=== PATIENT | male | born 1985 | race Caucasian/White ===

== ENCOUNTER 2019-07-14 11:38 | Emergency (ER) | payer OTHER, SELFPAY ==
[2019-07-14] MEDS ORDERED: Morphine 2 MG/ML SYRINGE ONE (13:11)
[2019-07-14] MEDS ORDERED: Morphine 4 MG/ML VIAL ONE (13:11)
[2019-07-14] MEDS ORDERED: Lidocaine 1% PF 5 ML VIAL ONE (13:11)
[2019-07-14] MEDS ORDERED: Lidocaine 1% w/Epinephrine 1:100K 30 ML VIAL ONE (13:12)
== END 2019-07-14 14:39 | disposition home or self-care (01) ==
LOC: BURERS 11:38
DX: K64.5 Perianal venous thrombosis (principal); F31.9 Bipolar disorder, unspecified; F17.210 Nicotine dependence, cigarettes, uncomplicated; Z87.442 Personal history of urinary calculi
CPT/HCPCS: 46083; J2001; J2270

== ENCOUNTER 2020-07-29 18:03 | Emergency (ER) | payer SELFPAY ==
[2020-07-29] MEDS ORDERED: predniSONE 20 MG TAB ONE (19:07)
== END 2020-07-29 19:10 | disposition home or self-care (01) ==
LOC: BURERS 18:03
DX: H60.92 Unspecified otitis externa, left ear (principal); H66.41 Suppurative otitis media, unspecified, right ear; H72.91 Unspecified perforation of tympanic membrane, right ear; K58.9 Irritable bowel syndrome, unspecified; F17.210 Nicotine dependence, cigarettes, uncomplicated; Z87.442 Personal history of urinary calculi
CPT/HCPCS: 99282; J7512

== ENCOUNTER 2020-10-02 07:38 | Emergency (ER) | payer SELFPAY ==
[2020-10-02 13:34] LABS: SARS-CoV-2 PCR by NAA Not Detected (NotDetected)
== END 2020-10-02 08:10 | disposition home or self-care (01) ==
LOC: BURERS 07:38
DX: R06.02 Shortness of breath (principal); R50.9 Fever, unspecified; R51.9 Headache, unspecified; R05 Cough; Z20.822 Contact with and (suspected) exposure to COVID-19; F17.210 Nicotine dependence, cigarettes, uncomplicated
CPT/HCPCS: 87635; 99406; U0003; U0005

== ENCOUNTER 2021-01-21 21:53 | Emergency (ER) | payer SELFPAY ==
[2021-01-21] MEDS ORDERED: Ketorolac Tromethamine 30 MG/ML VIAL ONE (23:26)
[2021-01-22 00:06] LABS: #Basophils 0.1 thou/uL (0.0-0.2); #Eosinphils 0.2 thou/uL (0.0-0.7); #Lymphocytes 2.5 thou/uL (1.20-3.40); #Monocytes 0.9 thou/uL (0.11-0.59); #Neutrophils 7.9 thou/uL (1.40-6.50); %Basophils 0.7 % (0.0-1.0); %Eosinophils 1.8 % (0.0-10.0); %Lymphocytes 21.7 % (21.0-51.0); %Monocytes 7.6 % (0.0-10.0); %Neutrophils 68.3 % (42.0-75.0); Hemoglobin 16.4 g/dL (14.0-18.0); Mean Corpuscular HGB CONC 33.2 g/dL (32.0-36.0); Mean Corpuscular Hemoglobin 30.7 pg (27.0-31.0); Mean Corpuscular Volume 92.3 fL (78.0-98.0); Mean Platelet Volume 9.6 fL (7.4-10.4); Platelet Count 189 thou/uL (130-400); RBC Distribution Width 12.8 % (11.5-14.5); Red Blood Cell (RBC) Count 5.33 mill/uL (4.70-6.10); White Blood Cell (WBC) Count 11.5 thou/uL (4.8-10.8)
[2021-01-22 00:20] LABS: Anion Gap 14 mmol/L (10-20); BUN (Urea Nitrogen) 11 mg/dL (8.9-20.6); Calc. Creatinine Clearance 0 mL/min (70-130); Carbon Dioxide 24 mmol/L (22-29); Chloride 107 mmol/L (98-107); Potassium 4.1 mmol/L (3.5-5.1); Sodium 141 mmol/L (136-145)
[2021-01-22 00:21] LABS: ALT (SGPT) 12 U/L (8-55); AST (SGOT) 18 U/L (5-34); Albumin 4.3 g/dL (3.5-5.0); Alkaline Phosphatase 75 U/L (40-110); Bilirubin, Total 0.3 mg/dL (0.2-1.2); Calcium 9.1 mg/dL (7.8-10.44); Glucose 108 mg/dL (70-105); Protein, Total 7.3 g/dL (6.0-8.3)
[2021-01-22] MEDS ORDERED: predniSONE 20 MG TAB ONE (02:13)
== END 2021-01-22 02:15 | disposition home or self-care (01) ==
LOC: BURERS 21:53
DX: S46.812A Strain of other muscles, fascia and tendons at shoulder and upper arm level, left arm, initial encounter (principal); F17.210 Nicotine dependence, cigarettes, uncomplicated; X58.XXXA Exposure to other specified factors, initial encounter
CPT/HCPCS: 36415; 71045; 71275; 80053; 83880; 84484; 85025; 93005; 96372; J1885; J7512; J7620

== ENCOUNTER 2021-10-22 14:54 | Emergency (ER) | payer SELFPAY ==
[2021-10-22] MEDS ORDERED: Ibuprofen 800 MG TAB ONE (15:14)
== END 2021-10-22 16:19 | disposition home or self-care (01) ==
LOC: BURERS 14:54
DX: T75.4XXA Electrocution, initial encounter (principal); S16.1XXA Strain of muscle, fascia and tendon at neck level, initial encounter; R51.9 Headache, unspecified; F17.210 Nicotine dependence, cigarettes, uncomplicated; Z87.442 Personal history of urinary calculi
CPT/HCPCS: 93005

== ENCOUNTER 2022-05-07 10:32 | Emergency (ER) | payer SELFPAY ==
[2022-05-07] MEDS ORDERED: Ketorolac Tromethamine 30 MG/ML VIAL ONE (11:53)
== END 2022-05-07 11:58 | disposition home or self-care (01) ==
LOC: BURERS 10:32
DX: S82.301A Unspecified fracture of lower end of right tibia, initial encounter for closed fracture (principal); S92.101A Unspecified fracture of right talus, initial encounter for closed fracture; F17.210 Nicotine dependence, cigarettes, uncomplicated; W22.8XXA Striking against or struck by other objects, initial encounter
CPT/HCPCS: 29515; 96372; J1885

== ENCOUNTER 2022-05-28 10:13 | Emergency (ER) | payer SELFPAY | END 2022-05-28 12:15 | disposition home or self-care (01) | LOC: BURERS 10:13 | DX: J01.00 Acute maxillary sinusitis, unspecified (principal); F17.210 Nicotine dependence, cigarettes, uncomplicated | CPT/HCPCS: 70450 ==

== ENCOUNTER 2022-06-08 10:29 | Emergency (ER) | payer SELFPAY | END 2022-06-08 11:48 | disposition home or self-care (01) | LOC: BURERS 10:29 | DX: J01.90 Acute sinusitis, unspecified (principal); F17.210 Nicotine dependence, cigarettes, uncomplicated; Z87.442 Personal history of urinary calculi | CPT/HCPCS: 99283 ==

== ENCOUNTER 2022-11-04 23:18 | Emergency (ER) | payer SELFPAY | END 2022-11-05 01:04 | disposition home or self-care (01) | LOC: BURERS 23:18 | DX: J11.1 Influenza due to unidentified influenza virus with other respiratory manifestations (principal); F17.210 Nicotine dependence, cigarettes, uncomplicated | CPT/HCPCS: 99282 ==

== ENCOUNTER 2023-04-18 21:31 | Emergency (ER) | payer SELFPAY ==
[2023-04-18] MEDS ORDERED: Acetaminophen 500 MG TAB ONE (21:48)
[2023-04-18] MEDS ORDERED: Ibuprofen 800 MG TAB ONE (22:28)
== END 2023-04-18 22:44 | disposition home or self-care (01) ==
LOC: BURERS 21:31
DX: R50.9 Fever, unspecified (principal); F17.210 Nicotine dependence, cigarettes, uncomplicated
CPT/HCPCS: 87804; 99283